=== PATIENT | female | born 1990 ===

== ENCOUNTER → 2020-04-17 17:10 | Observation (INO) ==
[2020-04-17 15:27] LABS: Bilirubin,Urine Negative (Negative); Blood,Urine Negative (Negative); Clarity,Urine Clear (Clear); Color,Urine Light-Yellow (Yellow); Glucose,Urine (UA) Normal (Normal); Ketones,Urine 10 mg/dL (Negative); Leukocyte Esterase,Urine Negative (Negative); Nitrite,Urine Negative (Negative); PH,Urine 5.5 pH Units (5.0-8.0); Protein,Urine Negative (Neg-Trace); Specific Gravity,Urine 1.009 (1.010-1.025); Urobilinogen,Urine Normal (Normal)
[~2020-04-17 17:10] MED LIST: Ringers Solution, Lactated 1,000 ML IVC ONE
== END | disposition home or self-care (01) ==
LOC: 1NENULAB
PROVIDERS: ADMIT Obstetrics & Gynecology; ATTEND Obstetrics & Gynecology

== ENCOUNTER 2020-05-01 07:53 | Inpatient (IN) ==
[2020-05-01] MEDS ORDERED: Metoclopramide 10 MG/2 ML VIAL IVP PRN (08:34)
[2020-05-01] MEDS ORDERED: Famotidine 20 MG/2 ML VIAL IVP PRN (08:34)
[2020-05-01] MEDS ORDERED: Azithromycin 500 MG in 0.9 % Sodium Chloride 250 ML IVPB PRN (08:34)
[2020-05-01] MEDS ORDERED: Lidocaine 1% 20 ML MDV INFILT PRN (08:34)
[2020-05-01] MEDS ORDERED: *HR* Nalbuphine 10 MG/ML AMPUL IV PRN (08:34)
[2020-05-01] MEDS ORDERED: Ondansetron 4 MG/2 ML VIAL IVP PRN (08:34)
[2020-05-01] MEDS ORDERED: Naloxone 0.4 MG/ML INJ IVP PRN (08:34)
[2020-05-01] MEDS ORDERED: Penicillin G Potassium 5,000,000 UNIT in 0.9 % Sodium Chloride Mini Bag 100 ML IVPB ONE (08:37)
[2020-05-01] MEDS ORDERED: Oxytocin 20 units/ LR 1000 mL 20 UNIT/1,000 ML BAG IVC SCH (08:45)
[2020-05-01] MEDS: miSOPROStoL 25 MCG TABLET VG PRN ×2 (10:10→14:23)
[2020-05-01 10:18] LABS: Basophils % 0.3 %; Eosinophils % 0.2 %; Hematocrit 36.9 % (35.3-44.9); Hemoglobin 12.2 g/dL (11.5-15.4); Immature Granulocytes % 2.1 % (0-4); Lymphocytes # 1.1 K/mcL (0.6-4.6); Lymphocytes % 10.7 %; Mean Corpuscular HGB Conc 33.1 g/dL (31.6-35.5); Mean Corpuscular Volume 87.6 fL (83.0-100.0); Mean Platelet Volume 9.7 fL (9.4-12.4); Monocytes # 0.8 K/mcL (0.0-1.3); Monocytes % 7.8 %; Neutrophils # 7.9 K/mcL (1.6-8.9); Platelet Count 310 K/mcL (140-400); Red Blood Count 4.21 M/mcL (3.82-4.97); Red Cell Distribution Width 13.6 % (11.5-14.5); Segmented Neutrophils % 78.9 %; White Blood Count 10.1 K/mcL (4.3-11.1)
[2020-05-01 10:53] LABS: Amphetamine Screen,Urine Negative ng/mL (Cutoff=1000); Barbiturate Screen,Urine Negative ng/mL (Cutoff=200); Benzodiazepines Screen,Urine Negative ng/mL (Cutoff=200); Cannabinoid Screen,Urine Negative ng/mL (Cutoff = 50); Cocaine Screen,Urine Negative ng/mL (Cutoff= 300); Opiate Screen,Urine Negative ng/mL (Cutoff=300); Phencyclidine Screen,Urine Negative ng/mL (Cutoff=25)
[2020-05-01] MEDS: Penicillin G Potassium 2,500,000 UNIT in 0.9 % Sodium Chloride 100 ML IVPB SCH ×3 (14:22→22:37)
[2020-05-01] MEDS: Ringers Solution, Lactated 1,000 ML IVC SCH ×3 (14:22→22:37)
[2020-05-01] MEDS ORDERED: miSOPROStoL 25 MCG TABLET PO SCH (15:00)
[2020-05-02] MEDS ORDERED: *HR* FentaNYL (PF) 100 MCG/2 ML VIAL EP ONE (01:58)
[2020-05-02] MEDS ORDERED: EPHEDrine 50 MG/ML VIAL IVP PRN (01:58)
[2020-05-02] MEDS ORDERED: Epidural Premix (fent/bupiv) 110 ML EP SCH (02:00)
[2020-05-02] MEDS ORDERED: *HR* FentaNYL (PF) 100 MCG/2 ML VIAL ONE ×2 (02:09→02:36)
[2020-05-02] MEDS: Penicillin G Potassium 2,500,000 UNIT in 0.9 % Sodium Chloride 100 ML IVPB SCH (02:44)
[2020-05-02] MEDS: Ringers Solution, Lactated 1,000 ML IVC SCH (02:45)
[2020-05-02] MEDS ORDERED: *HR* Morphine Sulfate/PF 10 MG/10 ML AMPUL ONE (10:27)
[2020-05-02] MEDS ORDERED: Acetaminophen IV 1,000 MG/100 ML BAG IVPB ONE (10:27)
[2020-05-02] MEDS ORDERED: Lidocaine/EPI 1:200k 2% PF 20 ML VIAL ONE (10:27)
[2020-05-02] MEDS ORDERED: Ondansetron 4 MG/2 ML VIAL ONE (10:37)
[2020-05-02] MEDS ORDERED: CeFAZolin 2,000 MG/50 ML BAG IVPB ONE (11:00)
[2020-05-02 11:06] LABS: Adenovirus Not Detected (Not Detect); Bordetella Pertussis Not Detected (Not Detect); Chlamydophila pneumoniae Not Detected (Not Detect); Coronavirus 229E Not Detected (Not Detect); Coronavirus HKU1 Not Detected (Not Detect); Coronavirus NL63 Not Detected (Not Detect); Coronavirus OC43 Not Detected (Not Detect); Human Metapneumovirus Not Detected (Not Detect); Human Rhinovirus/Enterovirus Not Detected (Not Detect); Influenza A Subtype 2009 H1 Not Detected (Not Detect); Influenza B Not Detected (Not Detect); Mycoplasma pneumoniae Not Detected (Not Detect); Parainfluenza Virus 1 Not Detected (Not Detect); Parainfluenza Virus 2 Not Detected (Not Detect); Parainfluenza Virus 3 Not Detected (Not Detect); Parainfluenza Virus 4 Not Detected (Not Detect); Respiratory Syncytial Virus Not Detected (Not Detect); SARS-CoV-2 Not Detected (Not Detect)
[2020-05-02] MEDS ORDERED: *HR* OxyCODONE Immed Rel 5 MG TABLET PO PRN ×2 (11:14→14:17)
[2020-05-02] MEDS ORDERED: Ondansetron 4 MG/2 ML VIAL IVP PRN ×2 (11:14→14:17)
[2020-05-02] MEDS ORDERED: *HR* HYDROmorphone PF 0.5 MG/0.5 ML SYRINGE IVP PRN (11:14)
[2020-05-02] MEDS ORDERED: Ketorolac 30 MG/ML VIAL ONE (11:17)
[2020-05-02] MEDS ORDERED: Simethicone 80 MG TAB.CHEW PO PRN (14:17)
[2020-05-02] MEDS ORDERED: Metoclopramide 10 MG/2 ML VIAL IVP PRN (14:17)
[2020-05-02] MEDS: cephALEXin 500 MG CAPSULE PO SCH ×2 (18:18→22:06)
[2020-05-02] MEDS: metroNIDAZOLE 500 MG TABLET PO SCH ×2 (18:18→22:06)
[2020-05-02] MEDS: Pantoprazole 40 MG VIAL IVP SCH (21:58)
[2020-05-02] MEDS: Oxytocin 20 units/ LR 1000 mL 20 UNIT/1,000 ML BAG IVC SCH (21:59)
[2020-05-02] MEDS: Sucralfate 1 GM TABLET PO SCH (22:06)
[2020-05-02] MEDS: Acetaminophen 325 MG TABLET PO SCH (22:06)
[2020-05-02] MEDS: Ibuprofen 600 MG TABLET PO SCH (22:07)
[2020-05-03] MEDS: Acetaminophen 325 MG TABLET PO SCH ×5 (04:00→21:23)
[2020-05-03] MEDS: Ibuprofen 600 MG TABLET PO SCH ×5 (04:00→21:22)
[2020-05-03] MEDS: Pantoprazole 40 MG VIAL IVP SCH ×2 (06:03→18:41)
[2020-05-03] MEDS: Oxytocin 20 units/ LR 1000 mL 20 UNIT/1,000 ML BAG IVC SCH (06:04)
[2020-05-03 06:42] LABS: Basophils % 0.2 %; Eosinophils % 0.2 %; Hematocrit 34.4 % (35.3-44.9); Hemoglobin 11.3 g/dL (11.5-15.4); Immature Granulocytes % 0.8 % (0-4); Lymphocytes # 1.1 K/mcL (0.6-4.6); Lymphocytes % 7.9 %; Mean Corpuscular HGB Conc 32.8 g/dL (31.6-35.5); Mean Corpuscular Volume 88.2 fL (83.0-100.0); Mean Platelet Volume 9.5 fL (9.4-12.4); Monocytes % 7.7 %; Platelet Count 236 K/mcL (140-400); Red Cell Distribution Width 13.9 % (11.5-14.5); Segmented Neutrophils % 83.2 %; White Blood Count 13.3 K/mcL (4.3-11.1)
[2020-05-03] MEDS ORDERED: Prenatal Vit/FA 1 EACH TABLET PO SCH (09:00)
[2020-05-03] MEDS: Sucralfate 1 GM TABLET PO SCH ×2 (09:34→14:21)
[2020-05-03] MEDS: metroNIDAZOLE 500 MG TABLET PO SCH ×3 (09:34→21:22)
[2020-05-03] MEDS: cephALEXin 500 MG CAPSULE PO SCH ×3 (09:34→21:23)
[2020-05-03] MEDS ORDERED: *HR* Propofol 200 MG/20 ML VIAL IVP ONE (12:52)
[2020-05-03] MEDS ORDERED: Lidocaine -MPF 2% 2 ML VIAL ONE (12:52)
[2020-05-04] MEDS: Pantoprazole 40 MG VIAL IVP SCH (05:28)
[2020-05-04] MEDS: Ibuprofen 600 MG TABLET PO SCH ×2 (05:29→11:28)
[2020-05-04] MEDS: Acetaminophen 325 MG TABLET PO SCH ×2 (05:29→09:25)
[2020-05-04 07:36] VITALS: BP 120/80
[2020-05-04] MEDS: cephALEXin 500 MG CAPSULE PO SCH (08:16)
[2020-05-04] MEDS: Sucralfate 1 GM TABLET PO SCH (08:17)
[2020-05-04] MEDS: metroNIDAZOLE 500 MG TABLET PO SCH (08:17)
== END 2020-05-04 12:05 | disposition home or self-care (01) | DRG 786 ==
LOC: 1NENULAB 07:53 → 1NENUOBS 05-02 13:49
PROVIDERS: ADMIT Student in an Organized Health Care Education/Training Program; ATTEND Student in an Organized Health Care Education/Training Program